=== PATIENT | male | born 1950 | race Caucasian/White ===

== ENCOUNTER 2021-03-11 09:18 | Inpatient (IN) | payer MEDICARE ==
[~2021-03-11] VITALS: Ht 175.3 cm; Wt 61.5 kg
[2021-03-11 10:23] LABS: HEMOGLOBIN 10.5 gm/dl (14.0-17.5); RED BLOOD COUNT 3.45 M/UL (4.20-5.50); WHITE BLOOD COUNT 15.4 K/UL (4.5-11.0)
[2021-03-11 10:49] LABS: BUN/CREATININE RATIO 40 (0-10)
[2021-03-12 03:10] LABS: HEMOGLOBIN 8.8 gm/dl (14.0-17.5)
[2021-03-12 03:11] LABS: RED BLOOD COUNT 2.92 M/UL (4.20-5.50); WHITE BLOOD COUNT 9.4 K/UL (4.5-11.0)
[2021-03-12 03:32] LABS: BUN/CREATININE RATIO 38 (0-10)
[2021-03-12 08:01] LABS: HEMOGLOBIN 7.4 gm/dl (14.0-17.5)
[2021-03-12 14:58] LABS: WHITE BLOOD COUNT 10.5 K/UL (4.5-11.0)
[2021-03-12 15:04] LABS: HEMOGLOBIN 10.6 gm/dl (14.0-17.5); RED BLOOD COUNT 3.58 M/UL (4.20-5.50)
[2021-03-12 15:25] LABS: BUN/CREATININE RATIO 28 (0-10)
[2021-03-12] MEDS ORDERED: ALBUTEROL1.25 MG/3 INH (17:24)
[2021-03-12] MEDS ORDERED: PROVENTIL HFA6.7 GM INH (17:24)
[2021-03-12] MEDS ORDERED: ASPIRIN81 MG PO (17:25)
[2021-03-12] MEDS ORDERED: AMLODIPINE BESY10 MG PO (17:25)
[2021-03-12] MEDS ORDERED: GABAPENTIN800 MG PO (17:26)
[2021-03-12] MEDS ORDERED: FEROSUL325 MG PO (17:26)
[2021-03-12] MEDS ORDERED: CARAFATE 1 GM TA1 GM PO (17:26)
[2021-03-12] MEDS ORDERED: LOPRESSOR 25 MG25 MG PO (17:27)
[2021-03-12] MEDS ORDERED: IBUPROFEN800 MG PO (17:27)
[2021-03-12] MEDS ORDERED: LOSARTAN POTAS100 MG PO (17:28)
[2021-03-12] MEDS ORDERED: QUETIAPINE FUM300 MG PO (17:28)
[2021-03-12] MEDS ORDERED: PROTONIX 40 MG40 M1 PO (17:28)
[2021-03-12] MEDS ORDERED: VITAMIN D 40400 UNIT PO (17:30)
[2021-03-12 19:09] LABS: HEMOGLOBIN 10.5 gm/dl (14.0-17.5)
[2021-03-13 07:26] LABS: HEMOGLOBIN 8.9 gm/dl (14.0-17.5); WHITE BLOOD COUNT 9.5 K/UL (4.5-11.0)
[2021-03-13 07:27] LABS: RED BLOOD COUNT 3.02 M/UL (4.20-5.50)
[2021-03-13 07:39] LABS: BUN/CREATININE RATIO 21 (0-10)
[2021-03-13] MEDS ORDERED: PROTONIX40 MG PO (08:47)
[2021-03-13 16:35] LABS: HEMOGLOBIN 9.2 gm/dl (14.0-17.5)
[2021-03-14 03:43] LABS: HEMOGLOBIN 8.7 gm/dl (14.0-17.5); RED BLOOD COUNT 2.95 M/UL (4.20-5.50)
[2021-03-14 03:45] LABS: WHITE BLOOD COUNT 6.9 K/UL (4.5-11.0)
[2021-03-14] MEDS ORDERED: PROTONIX40 MG PO (11:58)
[2021-03-14] MEDS ORDERED: MAALOX PLUS 3030 ML PO (11:58)
[2021-03-14] MEDS ORDERED: PHOS-NAK PACKET1 EA PO (11:58)
[2021-03-14] MEDS ORDERED: MAG-OX 400 TAB400 MG PO (11:58)
[2021-03-14] MEDS ORDERED: XOPENEX0.63 MG/3 INH (12:15)
[2021-03-14] MEDS ORDERED: ATROVENT-H0.065 GM/I INH (12:15)
== END 2021-03-14 19:10 | disposition home or self-care (01) | DRG 381 ==
LOC: ER1 09:18 → CDU 03-12 15:47 → M/S 03-12 16:39
PROVIDERS: Family Medicine; Physician Assistant; Student in an Organized Health Care Education/Training Program; Surgery; ADMIT Internal Medicine
PROC: 0DJ08ZZ Inspection of Upper Intestinal Tract, Via Natural or Artificial Opening Endoscopic (ICD-10-PCS; 2021-03-12)
PROC: 30233N1 Transfusion of Nonautologous Red Blood Cells into Peripheral Vein, Percutaneous Approach (ICD-10-PCS; principal; 2021-03-12 14:53)
PROC: B24BZZ4 Ultrasonography of Heart with Aorta, Transesophageal (ICD-10-PCS; 2021-03-14)
DX: K22.11 Ulcer of esophagus with bleeding (principal); D62 Acute posthemorrhagic anemia; Z20.822 Contact with and (suspected) exposure to COVID-19; N17.9 Acute kidney failure, unspecified; I47.1 Supraventricular tachycardia; E87.6 Hypokalemia; F10.10 Alcohol abuse, uncomplicated; K21.01 Gastro-esophageal reflux disease with esophagitis, with bleeding; J44.9 Chronic obstructive pulmonary disease, unspecified; I10 Essential (primary) hypertension; K29.20 Alcoholic gastritis without bleeding; E78.5 Hyperlipidemia, unspecified; E83.39 Other disorders of phosphorus metabolism; G62.9 Polyneuropathy, unspecified; I08.3 Combined rheumatic disorders of mitral, aortic and tricuspid valves; E86.0 Dehydration; F17.210 Nicotine dependence, cigarettes, uncomplicated; Z99.81 Dependence on supplemental oxygen; Z87.81 Personal history of (healed) traumatic fracture; Z86.711 Personal history of pulmonary embolism; Z79.01 Long term (current) use of anticoagulants
CPT/HCPCS: ECHO; 36415; 36430; 71045; 80053; 82550; 82553; 83540; 83550; 83735; 83874; 84100; 84484; 85014; 85018; 85025; 85610; 86850; 86900; 86901; 86920; 93005; 93270; 93306; 93970; 94640; 94760; 96374; 96375; 96376; 99285; C9113; J0330; J0696; J1100; J2270; J2405; J2543; J2704; J2765; J3475; J7030; J7050; P9016; Q9967; U0002